=== PATIENT | female | born 1995 | race Caucasian/White ===

== ENCOUNTER → 2017-09-27 | Outpatient (CLI) | payer OTHER ==
[2017-09-30 01:11] LABS: CHLAMYDIA TRACHOMATIS, NAA Positive (Negative); NEISSERIA GONORRHOEAE, NAA Negative (Negative)
== END | disposition home or self-care (01) ==
LOC: LAB EV 18:58 → LAB SHORT 18:58
PROVIDERS: Physician Assistant Surgical
DX: Z72.51 High risk heterosexual behavior (principal)
CPT/HCPCS: 86592; 87086

== ENCOUNTER → 2018-05-09 | Outpatient (CLI) | payer BC, OTHER ==
[2018-05-09 21:13] LABS: G. vaginalis (DNA Probe) Negative (NEGATIVE); T. vaginalis (DNA Probe) Negative (NEGATIVE)
[2018-05-09 21:14] LABS: Candida species (DNA Probe) Negative (NEGATIVE)
[2018-05-11 01:08] LABS: HBSAG SCREEN Negative (Negative); HEP A AB, IGM Negative (Negative); HEP B CORE AB, IGM Negative (Negative); HEP C VIRUS AB <0.1 (0.0-0.9); HIV SCREEN 4TH GENERATION WRFX Non Reactive (Non Reactive)
[2018-05-12 00:11] LABS: CHLAMYDIA TRACHOMATIS, NAA Negative (Negative); NEISSERIA GONORRHOEAE, NAA Negative (Negative)
== END ==
LOC: LAB SHORT 19:18 → LAB 19:18
PROVIDERS: Nurse Practitioner
DX: N34.1 Nonspecific urethritis (principal)
CPT/HCPCS: 80074; 86592; 87389; 87480; 87491; 87510; 87591; 87660

== ENCOUNTER → 2019-09-26 | Outpatient (CLI) | payer BC, OTHER | END | disposition home or self-care (01) | LOC: LAB 15:47 → LAB SHORT 15:47 | PROVIDERS: Obstetrics & Gynecology | DX: Z01.419 Encounter for gynecological examination (general) (routine) without abnormal findings (principal); Z11.3 Encounter for screening for infections with a predominantly sexual mode of transmission | CPT/HCPCS: 87491; 87591; G0123 ==

== ENCOUNTER 2019-11-12 15:59 | Inpatient (IN) | payer BC, OTHER ==
[~2019-11-12] VITALS: Ht 165.1 cm; Wt 88.2 kg
[2019-11-12 16:40] LABS: Source, Urine Clean Catch
[2019-11-12 16:46] LABS: BASOPHILS ABSOLUTE AUTO 0.04 K/mm3 (0.00-0.23); BASOPHILS PERCENT AUTO 0 % (0-2); EOSINOPHILS ABSOLUTE AUTO 0.12 K/mm3 (0.00-0.68); EOSINOPHILS PERCENT AUTO 1 % (0-6); Hematocrit 42.2 % (33.0-51.0); Hemoglobin 14.1 g/dL (11.5-16.0); IMMATURE GRAN ABSOLUTE AUTO 0.03 K/mm3 (0.00-0.10); IMMATURE GRAN PERCENT AUTO 0 % (0-1); LYMPHOCYTES ABSOLUTE AUTO 2.77 K/mm3 (0.84-5.20); LYMPHOCYTES PERCENT AUTO 27 % (21-46); MONOCYTES ABSOLUTE AUTO 0.69 K/mm3 (0.16-1.47); MONOCYTES PERCENT AUTO 7 % (4-13); Mean Corpuscular HGB 30.5 pg (26.0-34.0); Mean Corpuscular HGB Conc 33.4 g/dL (31.5-36.5); Mean Corpuscular Volume 91 fL (80-100); Mean Platelet Volume 12.6 fL (9.1-12.4); NEUTROPHILS ABSOLUTE AUTO 6.78 K/mm3 (1.96-9.15); NEUTROPHILS PERCENT AUTO 65 % (41-73); Platelet Count 235 K/mm3 (150-400); RDW Coefficient Variation 12.8 % (11.7-14.2); RDW Standard Deviation 42.5 fL (35.1-46.3); Red Blood Cell Count 4.63 M/mm3 (3.80-5.20); White Blood Cell Count 10.43 K/mm3 (4.00-11.30)
[2019-11-12 16:50] LABS: Appearance, Urine Hazy (Clear); Bilirubin, Urine Neg (Neg); Blood, Urine Neg (Neg); Color, Urine Yellow (P-Yellow); Glucose Qualitative, Urine Neg (Neg); Ketones, Urine Neg (Neg); Leukocyte Esterase, Urine Neg (Neg); Nitrite, Urine Neg (Neg); Protein, Urine Neg (Neg); Specific Gravity, Urine 1.015 (1.003-1.022); Urobilinogen, Urine NORM (Normal)
[2019-11-12 17:11] LABS: Alanine Aminotransfer (ALT/SGP 25 U/L (12-78); Albumin, Blood 3.7 g/dL (3.4-5.0); Alk Phos 55 U/L (50-136); Anion Gap 5 mmol/L (6-16); Aspartate Aminotrans (AST/SGOT 16 U/L (12-37); Bilirubin, Total 0.4 mg/dL (0.1-1.0); Blood Urea Nitrogen 10 mg/dL (8-24); Bun/Creatinine Ratio 16.6 (12.0-20.0); CO2, Blood 25 mmol/L (21-32); Chloride, Blood 112 mmol/L (98-108); Globulin, Blood 3.7 g/dL (2.2-4.0); Glomerular Filtration Rate >60 (60-); Glucose, Blood 90 mg/dL (70-99); Potassium, Blood 3.7 mmol/L (3.5-5.5); Sodium, Blood 142 mmol/L (136-145); Total Protein, Blood 7.4 g/dL (6.4-8.2)
[2019-11-12 17:17] LABS: Red Blood Cells, Urine 0-2 /hpf (0-2); Squamous Epithelial Cells Many /hpf (Few); White Blood Cells, Urine 0-2 /hpf (0-5)
[2019-11-12 17:18] LABS: Amorphous Heavy (0-Heavy); Bacteria Many /hpf
[2019-11-12] MEDS ORDERED: Lithium Carbon300 M1 PO (20:51)
--- NOTE | 2019-11-12 22:15 | NUR ---
ADMIT TO SURGICAL UNIT PT ARRIVED TO SURGICAL UNIT VIA WHEELCHAIR AT APPROX 2215 TODAY. IS A/OX4, ON RA WITH VSS, AND AMBULATES IND IN ROOM W/OUT DIFFICULTY. PT DENIES PAIN, N/V, N/T, SOB, OR CP. PT ALSO DENIES ANY ABNORMAL VAGINAL DISCHARGE, ITCHING, PAIN, OR ABD PAIN. SHE DOES REPORT DYSURIA. ORIENTATION TO ROOM AND CALL LIGHT PROVIDED, PT VERBALIZED UNDERSTANDING. SHE DENIES ANY NEEDS AT THIS TIME AND APPEARS TO BE RESTING COMFORTABLY IN BED WITH CALL LIGHT IN REACH.
--- NOTE | 2019-11-13 04:17 | NUR ---
SHIFT SUMMARY PT A/OX4, IND IN ROOM, VSS. APPEARS TO HAVE SLEPT WELL T/O NIGHT. ABX ADMINISTERED PER ORDERS. REPORTS DYSURIA, BUT DENIES NEED FOR INTERVENTION. DENIES N/V, MEGHANN PO INTAKE. PT IS CURRENTLY RESTING IN BED WITH CALL LIGHT IN REACH. WILL CONT TO MONITOR AND GIVE REPORT TO ONCOMING RN.
--- NOTE | 2019-11-13 07:45 | NUR ---
PT DENIES ANY PAIN AT THIS TIME. REPORTS NO VAGINAL PAIN AND STATES SHE JUST URINATED AND NO PAIN WITH URINATION
--- NOTE | 2019-11-13 17:51 | NUR ---
SUMMARY PT HAS DENIED PAIN OR NAUSEA THROUGHOUT SHIFT. PT AMBULATING IN ROOM AND HALLWAYS. VOIDING CLEAR YELLOW URINE
--- NOTE | 2019-11-14 04:46 | NUR ---
PT DID GREAT DURING NIGHT. DENIES ANY PAIN, DENIES ANY COMPLAINTS. NO VAG DRAINAGE, VOIDING WELL. CONT WITH PO AND IV ABX TREATMENT. CALL LIGHT IN REACH.
--- NOTE | 2019-11-14 18:20 | NUR ---
SHIFT SUMMARY PT HAS DONE WELL T/O SHIFT. HAS HAD NO C/O PAIN. IV ABX PER EMAR. PLAN IS FOR PELVIC EXAM IN AM.
--- NOTE | 2019-11-15 04:03 | NUR ---
SHIFT SUMMARY: NO ACUTE CHANGES THIS SHIFT. PT A&OX4. VS WNL. DENIES VAGINAL DISCHARGE, ABD PAIN AND URINARY SYMPTOMS. PT INDEPENDENT IN ROOM. TOLERATING PO. VOIDING WELL. PLAN FOR POSSIBLE DISCHARGE TODAY.
--- NOTE | 2019-11-15 11:12 | NUR ---
DISCHARGE PT DISCHAGED HOME FROM UNIT AT APROX 1110. PT GIVEN WRITTEN AND VERBAL DISCHARGE INSTRUCTIONS AND VERBALIZED UNDERSTANDING OF THESE INSTRUCTIONS. IV REMOVED, PT DECLINED WHEELCHAIR TO CAR, INDEPENDENTLY AMBULATED TO CAR.
[2019-11-16 10:09] LABS: CHLAMYDIA TRACHOMATIS, NAA Negative (Negative); NEISSERIA GONORRHOEAE, NAA Negative (Negative)
== END 2019-11-15 11:10 | disposition home or self-care (01) | DRG 690 ==
LOC: ER 15:59 → SURS 20:47
PROVIDERS: Physician Assistant; ADMIT Obstetrics & Gynecology
DX: A56.11 Chlamydial female pelvic inflammatory disease (principal)
CPT/HCPCS: 36415; 74177; 76830; 76856; 80053; 81001; 84703; 85025; 87077; 87086; 87186; 87491; 87591; 96374; 99285-25; J0694; J7050; Q9967

== ENCOUNTER → 2022-09-23 | Outpatient (CLI) | payer OTHER ==
[~2022-09-23] MED LIST: Bactrim Ds Tab1 EACH PO; Lithium Carbon300 M1 PO
[2022-09-23 11:03] LABS: Source, Urine Voided
[2022-09-23 12:21] LABS: Appearance, Urine Hazy (Clear); Bilirubin, Urine Neg (Neg); Blood, Urine 4+ (Neg); Color, Urine Amber (P-Yellow); Glucose Qualitative, Urine Neg (Neg); Ketones, Urine 2+ (Neg); Leukocyte Esterase, Urine 3+ (Neg); Nitrite, Urine Pos (Neg); Protein, Urine 3+ (Neg); Urobilinogen, Urine NORM (Normal)
[2022-09-23 12:56] LABS: Bacteria Mod /hpf; Hyaline Casts 0-2 /lpf (0-2); Mucus Mod (0-Heavy); Red Blood Cells, Urine 25-50 /hpf (0-2); Squamous Epithelial Cells Mod /hpf (Few); White Blood Cells, Urine 25-50 /hpf (0-5)
[2022-09-24 10:17] LABS: Candida species (DNA Probe) Negative (NEGATIVE); G. vaginalis (DNA Probe) Negative (NEGATIVE); T. vaginalis (DNA Probe) Negative (NEGATIVE)
[2022-09-26 15:08] LABS: CHLAMYDIA TRACHOMATIS, NAA Negative (Negative)
== END | disposition home or self-care (01) ==
LOC: LAB SHORT 11:01 → LAB 11:01
PROVIDERS: Advanced Practice Midwife
DX: Z01.419 Encounter for gynecological examination (general) (routine) without abnormal findings (principal); Z11.3 Encounter for screening for infections with a predominantly sexual mode of transmission; N39.0 Urinary tract infection, site not specified; N76.0 Acute vaginitis
CPT/HCPCS: 81001; 87077; 87086; 87186; 87480; 87491; 87510; 87591; 87660; G0145

== ENCOUNTER 2023-03-09 06:45 | Emergency (ER) | payer OTHER ==
[~2023-03-09] VITALS: Ht 167.6 cm; Wt 78.9 kg
[2023-03-09 07:07] VITALS: BP 124/86
[2023-03-09] MEDS ORDERED: BUPROPION XL150 M1 PO (07:17)
[2023-03-09] MEDS ORDERED: PROP10 PO (07:17)
[2023-03-09] MEDS ORDERED: [UNRECOGNIZED DRUG - CODE] PO (07:17)
[2023-03-09] MEDS ORDERED: IBUP600 PO (08:21)
== END 2023-03-09 08:37 | disposition home or self-care (01) ==
LOC: ER 06:45
DX: S61.210A Laceration without foreign body of right index finger without damage to nail, initial encounter (principal); Z23 Encounter for immunization; W26.8XXA Contact with other sharp object(s), not elsewhere classified, initial encounter; Z79.899 Other long term (current) drug therapy
CPT/HCPCS: 12001; 90471; 90714; 99282-25

== ENCOUNTER 2024-10-26 00:10 | Emergency (ER) | payer OTHER ==
[~2024-10-26] VITALS: Ht 165.1 cm; Wt 81.7 kg
[~2024-10-26 00:10] MED LIST changes: +BUPROPION XL150 M1 PO; +IBUP600 PO; +PROP10 PO; +[UNRECOGNIZED DRUG - CODE] PO
[2024-10-26] MEDS ORDERED: Ketorolac Tromethamine 30mg Vial IM ONE (01:50)
[2024-10-26] MEDS ORDERED: AMOCLA875 PO (03:48)
[2024-10-26 04:00] VITALS: BP 120/86
== END 2024-10-26 04:04 | disposition home or self-care (01) ==
LOC: ER 00:10
DX: S51.852A Open bite of left forearm, initial encounter (principal); W54.0XXA Bitten by dog, initial encounter; Z79.899 Other long term (current) drug therapy
CPT/HCPCS: 12004; 73090; 99283-25; A9270

== ENCOUNTER → 2024-10-28 | Outpatient (CLI) | payer OTHER ==
[~2024-10-28] MED LIST changes: +AMOCLA875 PO
[2024-10-31 07:57] LABS: APTIMA MEDIA TYPE Urine; C. TRACHOMATIS BY TMA Negative (Negative); N. GONORRHOEAE BY TMA Negative (Negative)
== END | disposition home or self-care (01) ==
LOC: LAB 17:31 → LAB SHORT 17:31
PROVIDERS: Obstetrics & Gynecology
DX: Z34.81 Encounter for supervision of other normal pregnancy, first trimester (principal)
CPT/HCPCS: 87491; 87591

== ENCOUNTER 2025-01-22 10:53 | Emergency (ER) | payer OTHER ==
[~2025-01-22] VITALS: Ht 165.1 cm; Wt 83.5 kg
[2025-01-22 12:10] LABS: BASOPHILS ABSOLUTE AUTO 0.04 K/mm3 (0.00-0.23); BASOPHILS PERCENT AUTO 0 % (0-2); EOSINOPHILS ABSOLUTE AUTO 0.04 K/mm3 (0.00-0.68); EOSINOPHILS PERCENT AUTO 0 % (0-6); Hematocrit 37.0 % (33.0-51.0); Hemoglobin 12.8 g/dL (11.5-16.0); IMMATURE GRAN ABSOLUTE AUTO 0.04 K/mm3 (0.00-0.10); IMMATURE GRAN PERCENT AUTO 0 % (0-1); LYMPHOCYTES ABSOLUTE AUTO 2.22 K/mm3 (0.84-5.20); LYMPHOCYTES PERCENT AUTO 24 % (21-46); MONOCYTES ABSOLUTE AUTO 0.65 K/mm3 (0.16-1.47); MONOCYTES PERCENT AUTO 7 % (4-13); Mean Corpuscular HGB Conc 34.6 g/dL (31.5-36.5); Mean Corpuscular Volume 88 fL (80-100); NEUTROPHILS ABSOLUTE AUTO 6.09 K/mm3 (1.96-9.15); NEUTROPHILS PERCENT AUTO 67 % (41-73); NRBC ABSOLUTE 0.00 K/mm3 (0.00-0.02); NRBC Auto 0.0 /100 WBC (0.0-0.2); Platelet Count 214 K/mm3 (150-400); RDW Coefficient Variation 12.9 % (11.7-14.2); RDW Standard Deviation 40.9 fL (35.1-46.3)
[2025-01-22 12:24] LABS: Anion Gap 7.0 mmol/L (3-11); Blood Urea Nitrogen 5.0 mg/dL (8-24); CO2, Blood 22.0 mmol/L (21-32); Calcium, Blood 8.6 mg/dL (8.5-10.1); Chloride, Blood 112.0 mmol/L (98-108); Creatinine, Blood 0.53 mg/dL (0.40-1.00); Glucose, Blood 84.0 mg/dL (70-99); Potassium, Blood 3.7 mmol/L (3.5-5.5); Sodium, Blood 137.0 mmol/L (136-145)
[2025-01-22 15:01] VITALS: BP 138/68
== END 2025-01-22 15:02 | disposition home or self-care (01) ==
LOC: ER 10:53
PROVIDERS: Emergency Medicine
DX: O20.9 Hemorrhage in early pregnancy, unspecified (principal); Z3A.17 17 weeks gestation of pregnancy; Z79.899 Other long term (current) drug therapy
CPT/HCPCS: 76815; 80048; 85025; 86900; 86901; 99284-25